=== PATIENT | male | born 1945 | race African-American/Black ===

== ENCOUNTER 2020-07-14 12:52 | Emergency (ER) | payer OTHER ==
[~2020-07-14] VITALS: Ht 177.8 cm; Wt 81.7 kg
[2020-07-14 12:55] VITALS: BP 149/73
[2020-07-14] MEDS ORDERED: AUGMENTIN 875-1 EACH PO (13:44)
== END 2020-07-14 13:46 | disposition home or self-care (01) ==
LOC: ER 12:52
DX: S21.152A Open bite of left front wall of thorax without penetration into thoracic cavity, initial encounter (principal); S21.151A Open bite of right front wall of thorax without penetration into thoracic cavity, initial encounter; I10 Essential (primary) hypertension; W54.0XXA Bitten by dog, initial encounter; Y93.89 Activity, other specified; Y92.89 Other specified places as the place of occurrence of the external cause; Y99.8 Other external cause status

== ENCOUNTER 2020-07-27 12:02 | Emergency (ER) | payer OTHER ==
[~2020-07-27] VITALS: Ht 177.8 cm; Wt 84.4 kg
[~2020-07-27 12:02] MED LIST: AUGMENTIN 875-1 EACH PO
[2020-07-27 13:58] VITALS: BP 139/88
== END 2020-07-27 13:56 | disposition home or self-care (01) ==
LOC: ER 12:02
DX: S31.159D Open bite of abdominal wall, unspecified quadrant without penetration into peritoneal cavity, subsequent encounter (principal); I10 Essential (primary) hypertension; Z79.2 Long term (current) use of antibiotics; W54.0XXD Bitten by dog, subsequent encounter

== ENCOUNTER → 2020-08-03 | Outpatient (CLI) | payer OTHER | LOC: HYPER 09:06 | PROVIDERS: ATTEND Emergency Medicine Emergency Medical Services | DX: S21.259A Open bite of unspecified back wall of thorax without penetration into thoracic cavity, initial encounter (principal); L98.492 Non-pressure chronic ulcer of skin of other sites with fat layer exposed; L91.0 Hypertrophic scar; I10 Essential (primary) hypertension; F17.200 Nicotine dependence, unspecified, uncomplicated; W54.0XXA Bitten by dog, initial encounter; Y93.89 Activity, other specified; Y92.89 Other specified places as the place of occurrence of the external cause; Y99.8 Other external cause status ==

== ENCOUNTER 2021-02-16 19:55 | Emergency (ER) | payer OTHER ==
[~2021-02-16] VITALS: Ht 180.3 cm; Wt 84.4 kg
[2021-02-16] MEDS ORDERED: MEDROLDOSEPACK PO (23:25)
[2021-02-16 23:29] VITALS: BP 154/75
== END 2021-02-16 23:29 | disposition home or self-care (01) ==
LOC: ER 19:55
DX: T78.3XXA Angioneurotic edema, initial encounter (principal); I10 Essential (primary) hypertension; Z79.899 Other long term (current) drug therapy